=== PATIENT | male | born 1995 | race Caucasian/White ===

== ENCOUNTER 2025-02-19 06:49 | Emergency (ER) | payer OTHER ==
[~2025-02-19] VITALS: Ht 182.9 cm; Wt 72.7 kg
[2025-02-19 06:54] VITALS: TEMP 98.4
[2025-02-19] MEDS: IBUPROFEN 600 MG TABLET PO ONE (07:35)
[2025-02-19] MEDS ORDERED: IBUP-1492 PO (07:36)
[2025-02-19] MEDS ORDERED: CEPH-558 PO (07:36)
[2025-02-19 08:51] VITALS: BP 125/66; PULSE 88; RESP 19; O2SAT 98
== END 2025-02-19 08:53 | disposition home or self-care (01) ==
LOC: EMS 06:51
DX: S56.812A Strain of other muscles, fascia and tendons at forearm level, left arm, initial encounter (principal); S50.311A Abrasion of right elbow, initial encounter; V03.10XA Pedestrian on foot injured in collision with car, pick-up truck or van in traffic accident, initial encounter; Y93.89 Activity, other specified; Y92.89 Other specified places as the place of occurrence of the external cause; Y99.8 Other external cause status
CPT/HCPCS: 99284; 73070-TC; 73090-TC; 73120-TC; Z7502; Z7610